=== PATIENT | male | born 1990 | race Caucasian/White ===

== ENCOUNTER → 2018-10-24 | Day surgery (SDC) | payer OTHER ==
[2018-10-24] VITALS (7 sets, daily range): BP systolic 115–131; BP diastolic 57–72
[~2018-10-24] VITALS: Ht 167.6 cm; Wt 77.1 kg
[~2018-10-24] MED LIST: ALBU17AE3 IH; CETI10CA PO; DIPH25TA65 PO; LACTATED RINGERS 1,000 ML IV ONE; LACTATED RINGERS 1,000 ML IV SCH; LANS15CA PO; LIDOCAINE PF 2% 5 ML (XYLOCAINE) VIAL ONE; MIDAZOLAM 2 MG/2 ML (VERSED) VIAL ONE; NS IV 1000 ML 1,000 ML IV SCH; ONDANSETRON 4 MG/2 ML (SDV) Z0FRAN ONE; SEVOFLURANE (ULTANE) 15 ML INHAL SOLN ONE; SUCCINYLCHOLINE INJ 100 MG/5 ML SYR ONE; alavert; fentaNYL INJECTION 100 MCG/2 ML AMP ONE; proPOfol 200 MG/20 ML (DIPRIVAN) VIAL IV ONE
--- NOTE | 2018-10-24 10:49 | ED GI ---
General Chief Complaint: Foreign Body Stated Complaint: PIECE OF FOOD STUCK IN THROAT X 14 HRS Source of Information: Patient Exam Limitations: No Limitations History of Present Illness Date Seen by Provider: Oct 24, 2018 Time Seen by Provider: 10:42 Initial Comments Assessment 28-year-old white male presents with a food bolus impaction that has been present for more than the last 12 hours. The patient is able to handle his secretions. He had no respiratory distress. Patient had this multiple times in the past requiring EGD. Allergies and Home Medications Allergies Coded Allergies: ciprofloxacin (Verified Allergy, Unknown, 10/24/18) "BLACK BOX REACTION" Uncoded Allergies: STEROID (Allergy, Unknown, 12/30/17) Home Medications Albuterol 17 Gm Inh, 1 SPRAY IH UD, (Reported) Patient Home Medication List Home Medication List Reviewed: Yes Review of Systems Review of Systems Constitutional: no symptoms reported EENTM: No Symptoms Reported Respiratory: No Symptoms Reported Cardiovascular: No Symptoms Reported Gastrointestinal: See HPI, Other Genitourinary: No Symptoms Reported (food bolus impaction) Musculoskeletal: no symptoms reported Skin: no symptoms reported Psychiatric/Neurological: No Symptoms Reported Endocrine: No Symptoms Reported Hematologic/Lymphatic: No Symptoms Reported Past Spljxsp-Wqrupu-Dreutg Hx Past Med/Social Hx: Reviewed Nursing Past Med/Soc Hx Patient Social History Recent Foreign Travel: No Contact w/Someone Who Travel: No Past Medical History Surgeries: Yes (SINUS) Respiratory: Yes Asthma Cardiac: No Gastrointestinal: Yes Gastroesophageal Reflux Musculoskeletal: No Cancer: No Psychosocial: No Physical Exam Vital Signs Vital Signs - First Documented 10/24/18 10:39 Temp 98.2 Pulse 65 Resp 20 B/P (MAP) 139/96 (110) Pulse Ox 100 Capillary Refill : Height/Weight/BMI Height: 5'6.00" Weight: 175lbs. oz. [id number]; BMI Method:Stated General Appearance: WD/WN, no apparent distress HEENT: normal ENT inspection Neck: full range of motion Respiratory: lungs clear Cardiovascular: regular rate, rhythm Gastrointestinal: normal bowel sounds, non tender, soft Extremities: normal range of motion, non-tender Back: normal inspection Neurologic/Psychiatric: no motor/sensory deficits, alert Skin: normal color, warm/dry Progress/Results/Core Measures Results/Orders My Orders Orders - MARY ALEXANDER MD Ns Iv 1000 Ml (Sodium Chloride 0.9%) (10/24/18 11:00) Type And Screen (10/24/18 11:05) Vital Signs/I&O 10/24/18 10:39 Temp 98.2 Pulse 65 Resp 20 B/P (MAP) 139/96 (110) Pulse Ox 100 Progress Progress Note : Time: 11:03 Progress Note The patient was unable to drink water. He promptly regurgitated 2-[address] Alicea was kind enough to present to care for the patient. Patient was taken to the EGD lab and the food bolus was removed piecemeal by Dr. Hernandez. Patient tolerated the procedure well. Patient is awake and alert and able to transfer without difficulty. Patient will be discharged to the care of his mother. He will follow up with Sil Hernandez next week. Departure Communication (Admissions) Dr. Hernandez was kind enough to present to evaluate the patient. Mr. Bradford will undergo an EGD. Impression Primary Impression: Foreign body in esophagus Qualified Codes: T18.108A - Unspecified foreign body in esophagus causing other injury, initial encounter Disposition: HOME, SELF-CARE Condition: Improved Departure-Patient Inst. Decision time for Depature: 15:08 Referrals: SAKINA HERNANDEZ DO NO,LOCAL PHYSICIAN (PCP) Primary Care Physician Patient Instructions: Foreign Body, Swallowed, Adult Add. Discharge Instructions: Follow-up with Dr. Hernandez next week by calling the office on Thursday. Return if any problems or questions. All discharge instructions reviewed with patient and/or family. Voiced understanding. MARY ALEXANDER MD Oct 24, 2018 10:49
--- NOTE | 2018-10-24 11:26 | NUR ---
DR HERNANDEZ HERE TALKING TO PT AT THIS TIME.
--- NOTE | 2018-10-24 11:38 | Consultation (Surgery) ---
History of Present Illness History of Present Illness Patient Consulted On(elin/time) 10/24/18 11:33 Time Seen by Provider: 11:23 History of Present Illness Surgery asked to consult regarding dysphagia secondary to probable food bolus. HPI per ED: Assessment 28-year-old white male presents with a food bolus impaction that has been present for more than the last 12 hours. The patient is able to handle his secretions. He had no respiratory distress. When I spoke to pt he denies abdominal pain, maybe some slight discomfort in middle of chest. States this will be the 3rd time this happened; [address] Gil in [place] did EGD and dilation and last year pt states it was a surgeon at via [facility], [place] "pushed it back down". He was only told to take some "acid blockers" and has been on generic Prevacid. Last night he was at father's day cookout having ribs; "it happened after the first bite, didn't even get to enjoy it." Allergies and Home Medications Allergies Coded Allergies: ciprofloxacin (Verified Allergy, Unknown, 10/24/18) "BLACK BOX REACTION" Uncoded Allergies: STEROID (Allergy, Unknown, 12/30/17) Home Medications Albuterol 17 Gm Inh, 1 SPRAY IH UD, (Reported) Patient Home Medication List Home Medication List Reviewed: Yes Past Bqfqjuv-Pdjjgt-Oqtrhu Hx Patient Social History Alcohol Use: Denies Use Recreational Drug Use: No Smoking Status: Never a Smoker Recent Foreign Travel: No Contact w/Someone Who Travel: No Recent Infectious Disease Expo: No Surgeries History of Surgeries: Yes (SINUS, ENDOSCOPYX2) Respiratory History of Respiratory Disorde: Yes Respiratory Disorders: Asthma Cardiovascular History of Cardiac Disorders: No Neurological History of Neurological Disord: No Genitourinary History of Genitourinary Disor: No Gastrointestinal History of Gastrointestinal Di: Yes (HX OF FOOD BOLUS) Gastrointestinal Disorders: Gastroesophageal Reflux Musculoskeletal History of Musculoskeletal Dis: No Endocrine History of Endocrine Disorders: No HEENT History of HEENT Disorders: No Cancer History of Cancer: No Psychosocial History of Psychiatric Problem: No Family Medical History Significant Family History: Cancer (Grandfather with Colon CA), GI Disease (Uncle with Crohn's), Other Conditions/Hx (Mother has RA) Review of Systems-General Constitutional: No chills, No diaphoresis, No malaise EENTM: throat pain; No blurred vision, No double vision, No mouth pain, No mouth swelling, No epistaxis Respiratory: No cough, No dyspnea on exertion Cardiovascular: No chest pain, No edema, No palpitations Gastrointestinal: abdominal pain, dysphagia; No hematemesis; loss of appetite Genitourinary: No dysuria, No frequency, No hematuria Musculoskeletal: No joint pain, No joint swelling, No muscle pain, No muscle stiffness Skin: No change in color, No change in hair/nails Psychiatric/Neurological: Denies Anxiety, Denies Depressed, Denies Seizure, Denies Tremors Other pt denies any abnormal bleeding or bruising, no heat or cold intolerance Physical Exam-General Problems Physical Exam Vital Signs Vital Signs - First Documented 10/24/18 10:39 Temp 98.2 Pulse 65 Resp 20 B/P (MAP) 139/96 (110) Pulse Ox 100 Capillary Refill : Less Than 3 Seconds General Appearance: WD/WN, no apparent distress Eyes: Bilateral Eye PERRL, Bilateral Eye EOMI HEENT: pharynx normal; No scleral icterus (R), No scleral icterus (L), No pale conjunctivae (R), No pale conjunctivae (L) Neck: non-tender, full range of motion, supple, normal inspection Respiratory: chest non-tender, lungs clear, normal breath sounds, no respiratory distress, no accessory muscle use Cardiovascular: regular rate, rhythm, no edema, no murmur Gastrointestinal: normal bowel sounds, non tender, soft, no organomegaly, no pulsatile mass Back: no CVA tenderness, no vertebral tenderness Extremities: normal range of motion, non-tender, normal inspection, no pedal edema, no calf tenderness, normal capillary refill Neurologic/Psychiatric: insurance actuary II-XII nml as tested, no motor/sensory deficits, alert, normal mood/affect, oriented x 3 Skin: normal color, warm/dry Lymphatic: no adenopathy (neck, axilla or groin) Assessment/Plan Assessment/Plan Assessment/Plan Dysphagia secondary to probable food bolus Plan is to take pt for EGD with possible biopsy and possible dilation; discussed risks and complications including but not limited to pain, bleeding, infection and even esophageal perforation. All questions answered to his satisfaction. SAKINA HERNANDEZ DO Oct 24, 2018 11:38
--- NOTE | 2018-10-24 13:37 | Progress Note-Post Operative ---
Post-Operative Progess Note Surgeon (s)/Pigment Presser (s) Surgeon SAKINA HERNANDEZ DO Pigment Presser: none Pre-Operative Diagnosis Dysphagia, retained food bolus Post-Operative Diagnosis Same ?? esophageal stricture Esophagitis Procedure & Operative Findings Date of Procedure 10/24/18 Procedure Performed/Findings EGD with disimpaction of food bolus Biopsy of GE jxn Anesthesia Type GET Estimated Blood Loss Estimated blood loss (mL): scant Specimens/Packing Specimens Removed GE jxn bx SAKINA HERNANDEZ DO Oct 24, 2018 13:37
--- NOTE | 2018-10-24 13:42 | Endoscopy Discharge Instruct ---
Endo Procedure/Findings Findings 1.: Stricture 2.: Arevalo's Esophagus Discharge Instructions - Activity: You might feel a little sleepy until tomorrow. This is due to the medicine you received to relax you. Until tomorrow, you should: NOT drive a car, operate machinery or power tools. NOT drink any alcoholic beverages. NOT make any important decisions or sign importortant papers. Do not return to work until tomorrow, unless otherwise instructed. Resume previous activities tomorrow. Diet: Start by taking liquids. If you tolerate liquids, advance to soft diet only, NO solid food. Make an appointment for one week; [phone] Instructions: 1.: EGD in 6-8 weeks Notify Physician - If you experience excessive bleeding, unusual abdominal pain, fever, or chest pain, contact your doctor immediately. Follow-Up: - I have received and understand the above instructions and will call my doctor if I have any further questions. Patient Signature Date Nurse Signature Other (Relationship) SAKINA HERNANDEZ DO Oct 24, 2018 13:42
--- NOTE | 2018-10-24 14:40 | NUR ---
PT BACK FROM [facility] AT THIS TIME. PT ALERT AND ORIENTED. PT TRANSFERED FROM TO ED COT WITH ASSISTANCE WITHOUT DIFFICULTY. PT REPORTS MILD THROAT TENDERNESS.
--- NOTE | 2018-10-24 15:38 | NUR ---
PT AMBULATES AND DRESSES SELF AT THIS TIME WITHOUT DIFFICULTY. PT MOTHER AT BEDSIDE AND REPORTS SHE WILL TAKE PT HOME. PT ALERT AND ORIENTED.
--- NOTE | 2018-10-24 22:09 | OPERATIVE REPORT ---
DATE OF SERVICE: PREOPERATIVE DIAGNOSIS: Dysphagia secondary to food bolus. POSTOPERATIVE DIAGNOSES: 1. Dysphagia secondary to food bolus. 2. 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 PROCEDURE: EGD with food disimpaction and then EGD with biopsy of the GE junction. SURGEON: Eleazar Hernandez DO COTTAGE SUPERVISOR: None. ANESTHESIA: IV sedation by CHEMICAL PACKAGER. SPECIMEN: Biopsy from the GE junction. BLOOD LOSS: Scant. FLUIDS: Per anesthesia. POSTOPERATIVE CONDITION: Stable. INDICATION FOR PROCEDURE: The patient is a 28-year-old male who states he ate some ribs last night and after a first bite he got stuck, was not able to eat the rest of the night and finally came in today. FINDINGS: The patient had large piece of food looked like meat stuck at the GE junction. PROCEDURE NOTE: After informed consent was obtained, the patient was brought to the endoscopy suite in the bed. He was given rapid intubation, then started the EGD, advanced down through the mouth into the esophagus and then saw a large piece of meat stuck, it was probably the GE junction. First attempted to grasp this with some graspers. This did not work, kept breaking apart. Switched to a Stone Net. Unfortunately, this was unable to work either and so used a biopsy forceps and spent about 40 minutes taking small bites of this suctioning them up and then putting the biopsy forceps back down until finally it fell into the stomach. Once this was fell in the stomach, pushed the scope into the stomach and into the small intestine. The small intestine looked good and the antrum looked good, retroflexed, looked like he had may be a small sliding hiatal hernia. He had some inflammation at the GE junction, took a picture. I then also backed up and took a picture of the GE junction, looked like he had some esophagitis, may be stricture, may be Arevalo's esophagus, did a biopsy here and then suctioned out all the air as well as the fluid and then pulled the scope up the esophagus out of the mouth. The patient tolerated the procedure. He was recovered in the endoscopy suite. Job ID: [id number] DocumentID: [id number] Dictated Date: 10/24/2018 13:46:03 Geometry Professor Date: 10/24/2018 22:09:31 Dictated By: ELEAZAR HERNANDEZ DO MTDD
== END | disposition home or self-care (01) ==
LOC: EDUNIT# 10:26 → ER 10:27 → SDC 11:32
PROVIDERS: ATTEND Surgery
DX: T18.128A Food in esophagus causing other injury, initial encounter (principal); K22.2 Esophageal obstruction; K21.9 Gastro-esophageal reflux disease without esophagitis; J45.909 Unspecified asthma, uncomplicated
CPT/HCPCS: 86850; 86900; 86901; 88305; 96360

== ENCOUNTER 2018-11-08 05:41 | Outpatient (CLI) | payer OTHER ==
[~2018-11-08] VITALS: Ht 167.6 cm; Wt 81.6 kg
[~2018-11-08 05:41] MED LIST changes: -LACTATED RINGERS 1,000 ML IV ONE; -LACTATED RINGERS 1,000 ML IV SCH; -LIDOCAINE PF 2% 5 ML (XYLOCAINE) VIAL ONE; -MIDAZOLAM 2 MG/2 ML (VERSED) VIAL ONE; -NS IV 1000 ML 1,000 ML IV SCH; -ONDANSETRON 4 MG/2 ML (SDV) Z0FRAN ONE; -SEVOFLURANE (ULTANE) 15 ML INHAL SOLN ONE; -SUCCINYLCHOLINE INJ 100 MG/5 ML SYR ONE; -fentaNYL INJECTION 100 MCG/2 ML AMP ONE; -proPOfol 200 MG/20 ML (DIPRIVAN) VIAL IV ONE
== END 2018-11-08 11:13 | disposition home or self-care (01) ==
LOC: PREOP 05:41
PROVIDERS: ATTEND Surgery
DX: Z01.818 Encounter for other preprocedural examination (principal)

== ENCOUNTER 2018-11-15 08:33 | Day surgery (SDC) | payer OTHER ==
[~2018-11-15] VITALS: Ht 167.6 cm; Wt 81.6 kg
[2018-11-15] MEDS ORDERED: LACTATED RINGERS 1,000 ML IV ONE (08:38)
[2018-11-15] MEDS ORDERED: LACTATED RINGERS 1,000 ML IV STA (08:44)
[2018-11-15] MEDS ORDERED: HURRICAINE EXT TUBE (BENZOCAINE) XX PRN (08:45)
[2018-11-15 08:50] VITALS: BP 133/91
[2018-11-15] MEDS ORDERED: HURRICAINE EXT TUBE (BENZOCAINE) ONE (09:16)
[2018-11-15] MEDS ORDERED: proPOfol 200 MG/20 ML (DIPRIVAN) VIAL IV ONE (09:29)
[2018-11-15] MEDS ORDERED: fentaNYL INJECTION 100 MCG/2 ML AMP ONE (09:29)
[2018-11-15] MEDS ORDERED: MIDAZOLAM 2 MG/2 ML (VERSED) VIAL ONE (09:30)
--- NOTE | 2018-11-15 09:39 | Progress Note-Pre Operative ---
Pre-Operative Progress Note H&P Reviewed The H&P was reviewed, patient examined and no changes noted. Time Seen by Provider: 09:35 Date H&P Reviewed: Nov 15, 2018 Time H&P Reviewed: 09:36 Pre-Operative Diagnosis: esophageal stricture SAKINA HERNANDEZ DO Nov 15, 2018 09:38
--- NOTE | 2018-11-15 09:59 | Progress Note-Post Operative ---
Post-Operative Progess Note Surgeon (s)/Tax Technician (s) Surgeon SAKINA HERNANDEZ DO Tax Technician: none Pre-Operative Diagnosis esophageal stricture Post-Operative Diagnosis Gastritis Esophagitis Procedure & Operative Findings Date of Procedure 11/15/18 Procedure Performed/Findings EGD with bx Anesthesia Type IV sedation by ASSOCIATE PROFESSOR PHYSICIAN Estimated Blood Loss Estimated blood loss (mL): scant Specimens/Packing Specimens Removed Antral bx GE jxn SAKINA HERNANDEZ DO Nov 15, 2018 09:59
--- NOTE | 2018-11-15 10:01 | Endoscopy Discharge Instruct ---
Endo Procedure/Findings Findings 1.: Gastritis Discharge Instructions - Activity: You might feel a little sleepy until tomorrow. This is due to the medicine you received to relax you. Until tomorrow, you should: NOT drive a car, operate machinery or power tools. NOT drink any alcoholic beverages. NOT make any important decisions or sign importortant papers. Do not return to work until tomorrow, unless otherwise instructed. Resume previous activities tomorrow. Diet: Start by taking liquids. If you tolerate liquids, advance to solid food. Make an appointment for one week Notify Physician - If you experience excessive bleeding, unusual abdominal pain, fever, or chest pain, contact your doctor immediately. Follow-Up: - I have received and understand the above instructions and will call my doctor if I have any further questions. Patient Signature Date Nurse Signature Other (Relationship) SAKINA HERNANDEZ DO Nov 15, 2018 10:00
[2018-11-15 10:10] VITALS: BP 119/71
[2018-11-15 10:30] VITALS: BP 116/75
--- NOTE | 2018-11-15 10:35 | Anesthesia-General Post-Op ---
MAC Patient Condition Mental Status/LOC: Same as Preop Cardiovascular: Satisfactory Nausea/Vomiting: Absent Respiratory: Satisfactory Pain: Controlled Complications: Absent Post Op Complications Complications None Follow Up Care/Instructions Patient Instructions None needed. Anesthesiology Discharge Order Discharge Order Patient is doing well, no complaints, stable vital signs, no apparent adverse anesthesia problems. No complications reported per nursing. IAIN GARDINER CRNA Nov 15, 2018 10:35
[2018-11-15 11:02] VITALS: BP 116/75
--- NOTE | 2018-11-15 16:06 | OPERATIVE REPORT ---
DATE OF SERVICE: 11/15/2018 PREOPERATIVE DIAGNOSES: History of gastritis, possible esophageal stricture with history of food bolus multiple times. POSTOPERATIVE DIAGNOSES: 1. Gastritis. 2. Esophagitis. 3. Possible small hiatal hernia. PROCEDURE: EGD with biopsy. SURGEON: Eleazar Singleton DO LIQUOR GALLERY OPERATOR: None. ANESTHESIA: IV sedation by the PHONOGRAPH CARTRIDGE ASSEMBLER. SPECIMEN: One biopsy from the antrum and then two biopsies from the GE junction. BLOOD LOSS: Scant. FLUIDS: Per anesthesia. POSTOPERATIVE CONDITION: Stable. INDICATION FOR PROCEDURE: The patient is a 28-year-old male, who recently had to have EGD with removal of food bolus. He has had this two times before and in the previous the first time he had dilation of the area, thought that he may need dilation and we did not get good biopsies the last time we did the procedure with the food bolus. FINDINGS: The patient had some gastritis and some mild esophagitis with a small hiatal hernia, but he did not appear to have an esophageal stricture. PROCEDURE NOTE: After informed consent was obtained, the patient was brought to the endoscopy suite and placed in the left lateral decubitus position. He was administered IV sedation by the PHONOGRAPH CARTRIDGE ASSEMBLER, who then monitored his vitals the entire time, heart rate, blood pressure, pulse ox and the scope was inserted down the mouth through the esophagus into the stomach. It actually went in easily into the stomach, pushed right in and pushed to the antrum, took a picture of the antrum, there was some gastritis and then pushed into the small intestine, which looked normal, took a picture of this. Pulled back into the antrum, did a biopsy of the antrum. Retroflexed the scope, saw a small hiatal hernia, pulled back into the GE junction and then did two biopsies of the GE junction. I then pulled back and actually insufflated and got a great dilation of the GE junction to much bigger than 20 mm. Therefore, the patient did not need any dilation of the esophagus and at this point then pulled the scope up the esophagus and into the mouth. In the mouth, I saw an area that looked almost like a polyp or almost like a tonsil, it is very hard to tell. I took pictures, I may send the patient to ENT for a second opinion. He tolerated the procedure and was recovered in endoscopy suite. Job ID: [id number] DocumentID: [id number] Dictated Date: 11/15/2018 10:58:07 Intern Architect Date: 11/15/2018 16:05:43 Dictated By: ELEAZAR SINGLETON DO
== END 2018-11-15 10:35 | disposition home or self-care (01) ==
LOC: ENDO 08:33
PROVIDERS: ATTEND Surgery
DX: K29.50 Unspecified chronic gastritis without bleeding (principal); K21.0 Gastro-esophageal reflux disease with esophagitis; J45.909 Unspecified asthma, uncomplicated; Z88.1 Allergy status to other antibiotic agents

== ENCOUNTER 2020-05-24 07:51 | Day surgery (SDC) | payer BC, OTHER ==
[2020-05-24] VITALS (9 sets, daily range): BP systolic 108–142; BP diastolic 44–92
[~2020-05-24] VITALS: Ht 167 cm; Wt 81.6 kg
--- NOTE | 2020-05-24 08:04 | NUR ---
ANESTHESIA STUDENT TALKING TO THE PT AT THIS TIME.
--- NOTE | 2020-05-24 08:04 | ED GI ---
General Chief Complaint: Oral/Throat Problems Stated Complaint: FOOD BOLUS History of Present Illness Date Seen by Provider: May 24, 2020 Time Seen by Provider: 07:45 Initial Comments Patient presents ER by private conveyance with chief complaint that late last night he was eating beef and broccoli and got a food bolus stuck in his esophagus. He has had difficulty with swallowing until this morning he is not able to swallow even his own saliva. He is having no difficulty breathing or talking or change in voice. He says this happened once before in November [address] Singleton by EGD. No abdominal surgeries. He does not take any medicines routinely. He does not have any significant medical history. He no longer follows the primary care doctor. Allergies and Home Medications Allergies Coded Allergies: ciprofloxacin (Verified Allergy, Unknown, 10/24/18) "BLACK BOX REACTION" Uncoded Allergies: STEROID (Allergy, Unknown, 12/30/17) Home Medications No Active Prescriptions or Reported Meds Patient Home Medication List Home Medication List Reviewed: Yes Review of Systems Review of Systems Constitutional: No chills, No diaphoresis EENTM: No Blurred Vision, No Double Vision Respiratory: Denies Cough, Denies Shortness of Air Cardiovascular: Denies Chest Pain, Denies Edema Gastrointestinal: See HPI; Denies Abdominal Pain, Denies Constipated, Denies Diarrhea; Difficulty Swallowing Genitourinary: Denies Burning, Denies Discharge Past Ymqbtgc-Wbtyks-Qjiceg Hx Patient Social History Alcohol Use: Occasionally Uses Alcohol Beverage of Choice: Whiskey Smoking Status: Never a Smoker Recent Hopitalizations: No Immunizations Up To Date PED Vaccines UTD: No Seasonal Allergies Seasonal Allergies: Yes Past Medical History Surgeries: Yes (SINUS, ) Respiratory: Yes Asthma Cardiac: No Neurological: No Genitourinary: No Gastrointestinal: Yes (HX OF FOOD BOLUS/dysphagia) Gastroesophageal Reflux Musculoskeletal: No Endocrine: No HEENT: No Cancer: No Psychosocial: No Integumentary: No Blood Disorders: No Family Medical History Cancer, GI Disease, Other Conditions/Hx Physical Exam Vital Signs Vital Signs - First Documented 05/24/20 07:55 Temp 36.2 Pulse 101 Resp 16 B/P (MAP) 135/95 (108) Pulse Ox 99 O2 Delivery Room Air Capillary Refill : Height/Weight/BMI Height: 5'6.00" Weight: 180lbs. 0.0oz. 81.622751ef; 29.1 BMI Method:Stated General Appearance: WD/WN, mild distress HEENT: PERRL/EOMI, TMs normal, pharynx normal Neck: full range of motion, supple, normal inspection Respiratory: lungs clear, normal breath sounds, no respiratory distress, no accessory muscle use Cardiovascular: normal peripheral pulses, regular rate, rhythm Peripheral Pulses: 2+ Radial Pulses (R), 2+ Radial Pulses (L) Neurologic/Psychiatric: alert, normal mood/affect, oriented x 3 Skin: normal color, warm/dry Progress/Results/Core Measures Results/Orders My Orders Orders - SUNDAY KEITH Lactated Ringers (Lr 1000 Ml Iv Solution (05/24/20 08:30) Ed Iv/Invasive Line Start (05/24/20 08:29) Vital Signs/I&O 05/24/20 07:55 Temp 36.2 Pulse 101 Resp 16 B/P (MAP) 135/95 (108) Pulse Ox 99 O2 Delivery Room Air Progress Progress Note : Time: 07:55 Progress Note Discussed the case with Dr. Singleton who is on his way here. He says he will be by to see the patient around 9. Plan to give the patient a liter of fluids to help with his hydration and set him up with the surgeon for EGD shortly. Departure Impression Primary Impression: Esophageal obstruction due to food impaction Disposition: 01 HOME, SELF-CARE Condition: Improved Departure-Patient Inst. Decision time for Depature: 08:00 Referrals: SAKINA SINGLETON DO NO,LOCAL PHYSICIAN (PCP) Primary Care Physician Patient Instructions: Food Obstruction Scripts No Active Prescriptions or Reported Meds SUNDAY KEITH May 24, 2020 08:04
[2020-05-24] MEDS ORDERED: LACTATED RINGERS 1,000 ML IV ONE (08:30)
--- NOTE | 2020-05-24 09:25 | History & Physical-Surgical ---
CHELSEA WALL,MED STUDENT 05/24/20 0925: History of Present Illness History of Present Illness Reason for visit/HPI Pt is a 29 year old male with PMH of GERD and asthma who presented to the ED 05/24 complaining of a food bolus. He states that he was eating beef and broccoli last night around 6-7 pm when a piece of food felt like it became lodged "above the stomach valve". He states he has tried drinking water to unlodge it but has had no success. He is having trouble swallowing this morning and feels like when he drinks not all of the liquid makes it past the piece of food and he has had to spit some out. He also notes he has had to spit up sinus drainage as well. He states this has happened to him 6-7 times in the past. He has had his esophagus dilated at least 3 times. He states his last EGD was in October of 2018 and dilation was performed at that time. He states he takes nexium over the counter but does not take it regularly. He denies any pain, fever, chills, SOB, nausea or vomiting. Date of Admission 05/24/2020 Date Seen by a Provider: May 24, 2020 Time Seen by a Provider: 08:00 I consulted on this patient on 05/24/20 09:20 Attending Physician Eleazar Singleton DO Admitting Physician No,Local Physician Consult Allergies and Home Medications Allergies Coded Allergies: ciprofloxacin (Verified Allergy, Unknown, 10/24/18) "BLACK BOX REACTION" Uncoded Allergies: STEROID (Allergy, Unknown, 12/30/17) Home Medications No Active Prescriptions or Reported Meds Past Cpymkqe-Rnbyya-Ixpfbs Hx Patient Social History Smoking Status: Never a Smoker Recent Hopitalizations: No Alcohol Use?: Yes (1-2x a week, whiskey) Substance type: Marijuana (edible) Immunizations Up To Date PED Vaccines UTD: No Seasonal Allergies Seasonal Allergies: Yes Surgeries History of Surgeries: Yes (SINUS, ) Respiratory History of Respiratory Disorde: Yes Respiratory Disorders: Asthma Cardiovascular History of Cardiac Disorders: No Neurological History of Neurological Disord: No Genitourinary History of Genitourinary Disor: No Gastrointestinal History of Gastrointestinal Di: Yes (HX OF FOOD BOLUS/dysphagia) Gastrointestinal Disorders: Gastroesophageal Reflux Musculoskeletal History of Musculoskeletal Dis: No Endocrine History of Endocrine Disorders: No HEENT History of HEENT Disorders: No Cancer History of Cancer: No Psychosocial History of Psychiatric Problem: Yes Behavioral Health Disorders: PTSD Integumentary History of Skin or Integumenta: No Blood Transfusions History of Blood Disorders: No Family Medical History Significant Family History: Cancer, GI Disease, Lung Disease (father- chronic bronchitis), Other Conditions/Hx (Mother- rheumatoid arthritis) Review of Systems Constitutional: No chills, No fever, No weakness EENTM: No blurred vision, No double vision, No throat pain, No throat swelling Respiratory: No cough, No dyspnea on exertion, No short of breath Gastrointestinal: No abdominal pain, No constipation, No diarrhea; heartburn Genitourinary: No decreased output, No dysuria Musculoskeletal: No back pain, No joint pain, No muscle pain Skin: No change in color; dryness; No lesions, No rash Psychiatric/Neurological: Denies Headache, Denies Numbness, Denies Tingling Heme: denies easy bleeding or bruising Physical Exam Vital Signs Vital Signs - First Documented 05/24/20 07:55 Temp 36.2 Pulse 101 Resp 16 B/P (MAP) 135/95 (108) Pulse Ox 99 O2 Delivery Room Air Capillary Refill : Less Than 3 Seconds Height, Weight, BMI Height: 5'6.00" Weight: 180lbs. 0.0oz. 81.817248bd; 29.00 BMI Method:Stated General Appearance: No Apparent Distress, WD/WN Eyes: Bilateral Eye PERRL, Bilateral Eye EOMI HEENT: Pharynx Normal, Moist Mucous Membranes; No Pharyngeal Erythema, No Tonsillar Exudate, No Tonsillar Enlargement Neck: Full Range of Motion, Non Tender, Supple; No Lymphadenopathy (L), No Lymphadenopathy (R) Respiratory: Lungs Clear, Normal Breath Sounds, No Accessory Muscle Use, No Respiratory Distress Cardiovascular: Regular Rate, Rhythm, No Edema, No Murmur Gastrointestinal: Normal Bowel Sounds, Non Tender, Soft; No Distended Rectal: Deferred Extremity: Normal Capillary Refill, Normal Range of Motion, No Pedal Edema Neurologic/Psychiatric: Alert, Oriented x3, No Motor/Sensory Deficits, Normal Mood/Affect Skin: Normal Color, Warm/Dry Lymphatic: No Adenopathy (cervical) Assessment/Plan Assessment/Plan Admission Diagonsis Food Bolus Assessment/Plan Food Bolus- Plan for EGD today to remove food bolus GERD- start protonix Hx of Asthma SOCORROELEAZAR GOLD DO 05/24/20 0955: History of Present Illness History of Present Illness Reason for visit/HPI HPI per ED: Patient presents ER by private conveyance with chief complaint that late last night he was eating beef and broccoli and got a food bolus stuck in his esophagus. He has had difficulty with swallowing until this morning he is not able to swallow even his own saliva. He is having no difficulty breathing or talking or change in voice. He says this happened once before in November [address] Singleton by EGD. No abdominal surgeries. He does not take any medicines routinely. He does not have any significant medical history. He no longer follows the primary care doctor. When I spoke to pt he stated that it felt like food was still stuck; "I guess I got to excited with the beef last night". States the OTC Nexium has been helping and hasn't really had a problem til now. Describes minor chest pain, "where the food is stuck". Time Seen by a Provider: 09:08 Allergies and Home Medications Allergies Coded Allergies: ciprofloxacin (Verified Allergy, Unknown, 10/24/18) "BLACK BOX REACTION" Uncoded Allergies: STEROID (Allergy, Unknown, 12/30/17) Home Medications No Active Prescriptions or Reported Meds Patient Home Medication List Home Medication List Reviewed: Yes Past Uoxmrqn-Znwzlg-Ibaxis Hx Family Medical History Significant Family History: Cancer, GI Disease, Lung Disease (father- chronic bronchitis), Other Conditions/Hx (Mother- rheumatoid arthritis) Review of Systems Constitutional: No chills, No fever, No weakness EENTM: throat pain; No blurred vision, No double vision, No throat swelling Respiratory: No cough, No dyspnea on exertion, No short of breath Gastrointestinal: No abdominal pain, No constipation, No diarrhea; heartburn; No nausea; vomiting Genitourinary: No decreased output, No dysuria Musculoskeletal: No back pain, No joint pain, No muscle pain Skin: No change in color; dryness; No lesions Psychiatric/Neurological: Denies Emotional Problems, Denies Headache, Denies Numbness, Denies Tingling Physical Exam General Appearance: No Apparent Distress, WD/WN Eyes: Bilateral Eye PERRL, Bilateral Eye EOMI HEENT: Pharynx Normal, Moist Mucous Membranes; No Pharyngeal Erythema, No Tonsillar Exudate, No Tonsillar Enlargement Neck: Full Range of Motion, Non Tender, Supple; No Lymphadenopathy (L), No Lymphadenopathy (R) Respiratory: Lungs Clear, Normal Breath Sounds, No Accessory Muscle Use, No Respiratory Distress Cardiovascular: Regular Rate, Rhythm, No Murmur Gastrointestinal: Non Tender, Soft; No Distended Extremity: Normal Capillary Refill, Normal Range of Motion Neurologic/Psychiatric: Alert, Oriented x3, No Motor/Sensory Deficits, Normal Mood/Affect Skin: Normal Color, Warm/Dry Lymphatic: No Adenopathy (cervical, axilla or groin) Assessment/Plan Assessment/Plan Admission Diagonsis Dysphagia Hx of Esophageal stricture Admission Status: Observation Assessment/Plan Dysphagia Hx of Esophageal stricture Plan for EGD today with possible removal of food bolus, possible esophageal dilation. Risks and complications discussed, not limited to pain, bleeding, infection and even esophageal perforation. All questions answered to his satisfaction. Supervisory-Addendum Brief Verification & Attestation Participated in pt care: history, MDM, physical Personally performed: exam, history, MDM Care discussed with: Medical Student Procedures: n/a Verification and Attestation of Medical Student E/M Service A medical student performed and documented this service. I then reviewed and verified all information documented by the medical student and made modifications to such information, when appropriate. I personally performed a physical exam, medical decision making and then discussed any differences between the notes and made revisions as necessary to create one note. Eleazar Singleton , 05/24/20 , 09:55 CHELSEA WALL,MED STUDENT May 24, 2020 09:25 ELEAZAR SINGLETNO DO May 24, 2020 09:55
[2020-05-24] MEDS ORDERED: ROCURONIUM 10 MG/ML 5 ML SYRINGE IV ONE (09:35)
[2020-05-24] MEDS ORDERED: ONDANSETRON 4 MG/2 ML (SDV) Z0FRAN ONE (09:35)
[2020-05-24] MEDS ORDERED: MIDAZOLAM 2 MG/2 ML (VERSED) VIAL ONE (09:35)
[2020-05-24] MEDS ORDERED: SEVOFLURANE (ULTANE) 15 ML INHAL SOLN ONE (09:35)
[2020-05-24] MEDS ORDERED: SUCCINYLCHOLINE INJ 100 MG/5 ML SYR/VIAL ONE (09:35)
[2020-05-24] MEDS ORDERED: proPOfol 200 MG/20 ML (DIPRIVAN) VIAL IV ONE (09:35)
[2020-05-24] MEDS ORDERED: LIDOCAINE PF 2% 5 ML (XYLOCAINE) VIAL ONE (09:35)
[2020-05-24] MEDS ORDERED: fentaNYL INJECTION 100 MCG/2 ML AMP ONE (09:36)
[2020-05-24] MEDS ORDERED: LACTATED RINGERS 1,000 ML IV PRN (10:30)
--- NOTE | 2020-05-24 11:00 | Progress Note-Post Operative ---
Post-Operative Progess Note Surgeon (s)/Paste Mixer Liquid (s) Surgeon SAKINA HERNANDEZ DO Paste Mixer Liquid: none Pre-Operative Diagnosis esophageal stricture Post-Operative Diagnosis Dysphagia - Esophageal phase Erosive Esophagitis - probably from trapped food bolus Procedure & Operative Findings Date of Procedure 05/24/20 Procedure Performed/Findings EGD with bx Anesthesia Type GET Estimated Blood Loss Estimated blood loss (mL): scant Specimens/Packing Specimens Removed GE jxn bx SAKINA HERNANDEZ DO May 24, 2020 11:00
--- NOTE | 2020-05-24 11:01 | Endoscopy Discharge Instruct ---
Endo Procedure/Findings Findings 1.: Other Findings (Esophagitis - probably erosive from food bolus) Discharge Instructions - Activity: You might feel a little sleepy until tomorrow. This is due to the medicine you received to relax you. Until tomorrow, you should: NOT drive a car, operate machinery or power tools. NOT drink any alcoholic beverages. NOT make any important decisions or sign importortant papers. Do not return to work until tomorrow, unless otherwise instructed. Resume previous activities tomorrow. Diet: Start by taking liquids. If you tolerate liquids, advance to solid food. 1.: EGD in 6-8 weeks Notify Physician - If you experience excessive bleeding, unusual abdominal pain, fever, or chest pain, contact your doctor immediately. SAKINA HERNANDEZ DO May 24, 2020 11:01
--- NOTE | 2020-05-24 12:10 | Anesthesia-General Post-Op ---
General Patient Condition Mental Status/LOC: Same as Preop Cardiovascular: Satisfactory Nausea/Vomiting: Absent Respiratory: Satisfactory Pain: Controlled Complications: Absent Post Op Complications Complications None Follow Up Care/Instructions Patient Instructions None needed. Anesthesia/Patient Condition Patient Condition Patient is doing well, no complaints, stable vital signs, no apparent adverse anesthesia problems. MEGAN HERNANDEZ DO May 24, 2020 12:10
--- NOTE | 2020-05-24 14:24 | OPERATIVE REPORT ---
DATE OF SERVICE: PREOPERATIVE DIAGNOSES: Dysphagia and chest pain, questionable trapped food bolus. POSTOPERATIVE DIAGNOSES: Erosive esophagitis. PROCEDURE: EGD with biopsy. SURGEON: Eleazar Singleton DO [employer]CHOOL GUIDANCE COUNSELOR: None. ANESTHESIA: General endotracheal tube. SPECIMEN: Biopsy from GE junction. BLOOD LOSS: Scant. FLUIDS: Per anesthesia. POSTOPERATIVE CONDITION: Stable. INDICATION FOR PROCEDURE: The patient is a 29-year-old male with history of esophageal strictures and at least 2 or 3 episodes of entrapped food bolus. States he was eating some beef and broccoli yesterday and thought the beef was stuck, still felt like he could not swallow anything and when he tried to drink liquids, he just spit it back up. FINDINGS: The patient had some erosive esophagitis, probably from piece of food that was stuck, but there was nothing stuck and the GE junction was widely patent. PROCEDURE NOTE: After informed consent was obtained, the patient was brought to the operating room, placed on the table in supine position. He was intubated by the EXTRUSION UTILITY WORKER and then they monitored his vitals the entire time, placed a scope down the mouth into the esophagus, which was widely patent and then down into the GE junction, looked like there were some erosive changes, took a picture, but easily push past here into the stomach, took a picture of the stomach and into the small intestine. Retroflexed the scope, did not really see any obvious pathology. There may have been a small polyp in the stomach and then pulled back up into the GE junction again looked like some erosions, possibly some necrosis. No active bleeding, elected to do a biopsy here, but able to insufflate and the scope, which is 1 cm easily passed and it looked like a dilated up much past this as well. I did not want to do a dilation at this time since there is acute inflammation. At this point, then pushed the scope into the stomach, suctioned all the air out and then pulled the scope up the esophagus and out the mouth. The patient tolerated the procedure. He was sent to recovery room in stable condition. Job ID: [id number] DocumentID: [id number] Dictated Date: 05/24/2020 13:05:44 Manager Technology Date: 05/24/2020 14:23:07 Dictated By: ELEAZAR SINGLETON DO [facility]
== END 2020-05-24 12:20 | disposition home or self-care (01) ==
LOC: EDUNIT# 07:51 → ER 07:53 → SDC 08:39
PROVIDERS: ATTEND Surgery
DX: K21.00 Gastro-esophageal reflux disease with esophagitis, without bleeding (principal); T18.128A Food in esophagus causing other injury, initial encounter; Z88.1 Allergy status to other antibiotic agents; Z88.8 Allergy status to other drugs, medicaments and biological substances; Z20.828 Contact with and (suspected) exposure to other viral communicable diseases
CPT/HCPCS: 43239; 87081; 88305; 99284; U0002; 87635